=== PATIENT | female | born 1970 | race Caucasian/White ===

== ENCOUNTER 2017-04-01 15:55 | Emergency (ER) | payer MEDICAID, OTHER ==
[~2017-04-01] VITALS: Ht 167.6 cm; Wt 83.9 kg
[2017-04-01 17:01] VITALS: BP 119/76
[2017-04-01] MEDS ORDERED: KETOROLAC TROMETH 60MG/2ML VIAL IM ONE (17:30)
[2017-04-01] MEDS ORDERED: ACETAMINOPHEN 500 MG TAB PO ONE (17:45)
== END 2017-04-01 18:19 | disposition home or self-care (01) ==
LOC: ER 15:55
DX: S13.4XXA Sprain of ligaments of cervical spine, initial encounter (principal); V49.49XA Driver injured in collision with other motor vehicles in traffic accident, initial encounter; Y93.89 Activity, other specified; Y99.8 Other external cause status; Y92.410 Unspecified street and highway as the place of occurrence of the external cause
CPT/HCPCS: 72125